=== PATIENT | female | born 1980 | race Caucasian/White ===

== ENCOUNTER 2017-01-03 15:26 | Emergency (ER) | payer MEDICAID ==
[~2017-01-03] VITALS: Ht 157.5 cm; Wt 77.2 kg
[~2017-01-03 15:26] MED LIST: COLACE100 MG PO; IBUPROFEN400 MG PO; NORCO1 TA2 PO
[2017-01-03 18:36] LABS: microscopic required? YES; urine erythrocyte TRACE (NEGATIVE)
[2017-01-03 20:23] VITALS: BP 110/71
== END 2017-01-03 20:23 | disposition home or self-care (01) ==
LOC: ED 15:26
PROVIDERS: Emergency Medicine
DX: N30.00 Acute cystitis without hematuria (principal); N75.0 Cyst of Bartholin's gland
CPT/HCPCS: J1885

== ENCOUNTER 2017-03-28 14:22 | Emergency (ER) | payer MEDICAID ==
[2017-03-28 14:24] VITALS: BP 117/87
== END 2017-03-28 15:12 | disposition home or self-care (01) ==
LOC: ED 14:22
DX: H66.92 Otitis media, unspecified, left ear (principal)

== ENCOUNTER 2017-05-25 10:14 | Emergency (ER) | payer MEDICAID ==
[~2017-05-25] VITALS: Ht 154.9 cm; Wt 78.9 kg
[2017-05-25 11:55] VITALS: BP 122/79
== END 2017-05-25 11:56 | disposition home or self-care (01) ==
LOC: ED 10:14
DX: R51 Headache (principal); Z88.8 Allergy status to other drugs, medicaments and biological substances
CPT/HCPCS: J1885

== ENCOUNTER 2018-01-17 08:46 | Emergency (ER) | payer MEDICAID ==
[~2018-01-17] VITALS: Ht 152.4 cm; Wt 75.7 kg
[2018-01-17 08:52] VITALS: Ht 152.4 cm; Wt 75.7 kg
[2018-01-17 09:28] LABS: UA SPECIFIC GRAVITY 1.015 (1.005-1.035); microscopic required? YES; urine erythrocyte 1+ (NEGATIVE)
[2018-01-17 11:29] VITALS: BP 120/84
== END 2018-01-17 11:29 | disposition home or self-care (01) ==
LOC: ED 08:46
PROVIDERS: Emergency Medicine
DX: H10.9 Unspecified conjunctivitis (principal); B37.3 Candidiasis of vulva and vagina; N39.0 Urinary tract infection, site not specified; Z88.8 Allergy status to other drugs, medicaments and biological substances
CPT/HCPCS: 87491; 87591

== ENCOUNTER 2018-11-18 10:42 | Emergency (ER) | payer MEDICAID ==
[~2018-11-18] VITALS: Ht 154.9 cm; Wt 74.8 kg
[2018-11-18 10:59] VITALS: Ht 154.9 cm; Wt 74.8 kg
[2018-11-18 12:52] VITALS: BP 101/56
== END 2018-11-18 12:52 | disposition home or self-care (01) ==
LOC: ED 10:42
DX: J01.90 Acute sinusitis, unspecified (principal); Z88.8 Allergy status to other drugs, medicaments and biological substances; Z91.041 Radiographic dye allergy status